=== PATIENT | male | born 1970 | race Caucasian/White ===

== ENCOUNTER 2018-03-19 17:39 | Emergency (ER) | payer OTHER ==
--- NOTE | 2018-03-19 18:28 | EDM.PDOC ---
ED HPI GENERAL MEDICAL PROBLEM - General Chief Complaint: Upper Extremity Injury/Pain Stated Complaint: L HAND INJURY Time Seen by Provider: 03/19/18 18:11 Source of Information: Reports: Patient History Limitations: Reports: No Limitations - History of Present Illness INITIAL COMMENTS - FREE TEXT/NARRATIVE: Patient is a 47-year-old male presents ED complaining of left third MCP pain. Patient states he was closing a barn door and felt a pop to the affected MCP. Since then has been experiencing pain localized with some slight swelling and deformity noted. He has full range of motion of the affected finger. No pain noted to the remaining aspects of the hand. No sensation changes noted. No pain to the wrist. No prior injury to the affected finger. Left Hand Pain Score (Numeric/FACES): 3 - Related Data Allergies Allergy/AdvReac Type Severity Reaction Status Date / Time codeine Allergy Rash Verified 03/19/18 17:47 Penicillins Allergy Rash Verified 03/19/18 17:47 Home Meds: Home Meds . [Unable to Verify Home Med List] 03/19/18 [History] Past Medical History Cardiovascular History: Reports: Hypertension Psychiatric History: Reports: Anxiety, Depression Social & Family History - Tobacco Use Smoking Status *Q: Never Smoker - Caffeine Use Caffeine Use: Reports: Coffee - Recreational Drug Use Recreational Drug Use: No Review of Systems - Review of Systems Review Of Systems: ROS reveals no pertinent complaints other than HPI. ED EXAM, GENERAL - Physical Exam Exam: See Below Exam Limited By: No Limitations General Appearance: Alert, WD/WN, No Apparent Distress Ears: Hearing Grossly Normal Nose: Normal Inspection Throat/Mouth: Normal Voice Neck: Normal Inspection, Supple Respiratory/Chest: No Respiratory Distress, No Accessory Muscle Use Cardiovascular: Normal Peripheral Pulses, Regular Rate, Rhythm Peripheral Pulses: 2+: Radial (L) Extremities: Other (Mild swelling noted with examination of the third MCP of the left hand. On the dorsal aspect. Pain with palpation with no bony abnormalities along the third metacarpal, MCP, and finger. No pain remaining aspects of the hand or fingers. No pain to the wrist.) Neurological: Alert, Oriented, CN II-XII Intact, Slow to Respond Psychiatric: Normal Affect, Normal Mood Skin Exam: Warm, Dry, Intact, Normal Color, No Rash Course - Vital Signs Last Recorded V/S: Last Vital Signs Temp 98.7 F 03/19/18 17:47 Pulse 70 01/28/19 17:47 Resp 18 03/19/18 17:47 BP 156/99 H 03/19/18 17:47 Pulse Ox 97 03/19/18 17:47 - Orders/Labs/Meds Orders: Active Orders 24 hr Category Date Time Status Hand Comp Min 3V Lt [CR] Stat Exams 03/19/18 18:17 Taken - Re-Assessments/Exams Free Text/Narrative Re-Assessment/Exam: Will obtain x-ray of the left hand. 03/19/18 19:26 no obvious acute bony abnormalities noted on x-ray. Final interpretation is pending. No splint required at this point. Patient has full range of motion of the affected finger at the MCP. Return precautions discussed with the patient. Patient had no questions or concerns. Departure - Departure Time of Disposition: 19:27 Disposition: Home, Self-Care 01 Condition: Good Clinical Impression: Sprain, MCP, hand, left Qualifiers: Encounter type: initial encounter Finger: middle finger Qualified Code(s): S63.653A - Sprain of metacarpophalangeal joint of left middle finger, initial encounter - Discharge Information Instructions: Finger Sprain, Adult, [id number] Referrals: Melinda Tomlin, [employer]IVE [Primary Care Provider] - Forms: ED Department Discharge Additional Instructions: No obvious fracture noted on x-ray. Final interpretation is pending. If one is present per radiologist you'll be notified. Refrain from any activities that cause worsening discomfort. Apply ice to the affected area 4 times a day, 20 minutes in duration, do not apply ice directly on the skin. Utilize Tylenol and ibuprofen in alternating fashion for pain. If pain persists along with swelling please follow up with orthopedic surgeon in the next 1-2 weeks. Return to the ED if you develope any new or worsening symptoms. - My Orders Last 24 Hours: My Active Orders 03/19/18 18:17 Hand Comp Min 3V Lt [CR] Stat - Assessment/Plan Last 24 Hours: My Active Orders 03/19/18 18:17 Hand Comp Min 3V Lt [CR] Stat
--- NOTE | 2018-03-20 06:28 | CR ---
Left hand: Four views of the left hand were obtained. Comparison: No previous study. Joint spaces are maintained. No fracture, dislocation or other bony abnormality is seen. Impression: 1. No abnormality is appreciated on left hand exam. Diagnostic code #1
== END 2018-03-19 19:31 | disposition home or self-care (01) ==
LOC: JD.ED 17:39
DX: S63.653A Sprain of metacarpophalangeal joint of left middle finger, initial encounter (principal); Z88.5 Allergy status to narcotic agent; Z88.0 Allergy status to penicillin; X58.XXXA Exposure to other specified factors, initial encounter
CPT/HCPCS: 73130-26-LT; 73130-LT; 99283